=== PATIENT | male | born 1955 | race Caucasian/White ===

== ENCOUNTER 2017-01-21 19:08 | Emergency (ER) | payer BC ==
[2017-01-21 19:43] VITALS: BP 126/75
--- NOTE | 2017-01-21 19:51 | UC ---
Skin Complaint HPI - HPI Summary HPI Summary: on he thought he got bit by a spider on his left lower leg near knee--- now area has increasing out of bruising (about 15 cm diameter) - History of Current Complaint Chief Complaint: [employer] Time Seen by Provider: 01/21/17 19:44 Stated Complaint: SPIDER BITE Hx Obtained From: Patient Onset/Duration: Sudden Onset, Lasting Days - 2, Worse Since - today Timing: Constant Onset Severity: Mild Current Severity: Mild Pain Intensity: 2 Pain Scale Used: 0-10 Numeric Location: Discrete Character: Pain - /bruising Aggravating Factor(s): Nothing Alleviating Factor(s): Nothing Associated Signs & Symptoms: Positive: Bruising Related History: Insect Bite/Sting - Allergy/Home Medications Allergies/Adverse Reactions: Allergies Allergy/AdvReac Type Severity Reaction Status Date / Time No Known Allergies Allergy Verified 01/21/17 19:36 Home Medications: Home Medications traZODone TAB* [Desyrel TAB*] 1 tab BEDTIME 01/21/17 [History Confirmed 01/21/17 ] Review of Systems Constitutional: Negative Skin: Bruising - 15 cm diameter area left lower leg medial distal knee Eyes: Negative ENT: Negative Respiratory: Negative Cardiovascular: Negative Gastrointestinal: Negative Genitourinary: Negative Motor: Negative Neurovascular: Negative Musculoskeletal: Negative Neurological: Negative Psychological: Negative Is Patient Immunocompromised?: No All Other Systems Reviewed And Are Negative: Yes PMH/Surg Hx/FS Hx/Imm Hx Previously Healthy: No Endocrine History: Dyslipidemia GI/ History: Gastroesophageal Reflux - Surgical History Surgical History: Yes Surgery Procedure, Year, and Place: Numerous nodules removed; Tonsillectomy; Cataract Surgery and Lens Implant; Bilateral Knee Meniscus Surgery x4 - Family History Known Family History: Positive: None - Social History Occupation: Employed Part-time Lives: With Family Alcohol Use: Occasionally Substance Use Type: None Smoking Status (MU): Never Smoked Tobacco - Immunization History Most Recent Influenza Vaccination: NONE 2017 Physical Exam Triage Information Reviewed: Yes Appearance: Well-Appearing, No Pain Distress, Well-Nourished Vital Signs: Initial Vital Signs Temp 98.8 F 01/21/17 19:38 Pulse 85 01/21/17 19:38 Resp 18 01/21/17 19:38 BP 126/75 01/21/17 19:38 Pulse Ox 99 01/21/17 19:38 Vital Signs Reviewed: Yes Eye Exam: Normal Eyes: Positive: Conjunctiva Clear ENT Exam: Normal ENT: Positive: Normal ENT inspection, Hearing grossly normal. Negative: Trismus , Muffled/hoarse voice Dental Exam: Normal Neck exam: Normal Neck: Positive: Supple, Nontender, No Lymphadenopathy Respiratory Exam: Normal Respiratory: Positive: Chest non-tender, No respiratory distress, No accessory muscle use Cardiovascular Exam: Normal Cardiovascular: Positive: Pulses Normal, Brisk Capillary Refill Musculoskeletal Exam: Normal Musculoskeletal: Positive: Strength Intact, ROM Intact, Edema @ - left lower legs Neurological Exam: Normal Neurological: Positive: Alert, Muscle Tone Normal Psychological Exam: Normal Skin Exam: Normal Course/Dx - Course Course Of Treatment: rice, elevate, follow with pcp prn - Differential Diagnoses - Skin Complaint Differential Diagnoses: Cellulitis, Local Allergic Reaction - Diagnoses Provider Diagnoses: Contusion left lower leg Discharge - Discharge Plan Condition: Stable Disposition: HOME Patient Education Materials: Contusion in Adults (ED), RICE Therapy (ED) Referrals: Martin Chicas DO [Primary Care Provider] - If Needed
== END 2017-01-21 20:22 | disposition home or self-care (01) ==
LOC: UCCORT 19:08
DX: S80.12XA Contusion of left lower leg, initial encounter (principal); W57.XXXA Bitten or stung by nonvenomous insect and other nonvenomous arthropods, initial encounter; Y93.9 Activity, unspecified; Y92.9 Unspecified place or not applicable; E78.5 Hyperlipidemia, unspecified; K21.9 Gastro-esophageal reflux disease without esophagitis
CPT/HCPCS: 99211; G0463